=== PATIENT | female | born 1990 | race Caucasian/White ===

== ENCOUNTER 2018-06-16 10:56 | Emergency (ER) | payer OTHER ==
[~2018-06-16] VITALS: Ht 167.6 cm; Wt 88.9 kg
[2018-06-16 11:03] VITALS: Ht 167.6 cm; Wt 88.9 kg
[2018-06-16 11:34] VITALS: BP 140/90
== END 2018-06-16 11:27 | disposition home or self-care (01) ==
LOC: ED 10:56
DX: J06.9 Acute upper respiratory infection, unspecified (principal)